=== PATIENT | female | born 1955 | race Hispanic/Latino ===

== ENCOUNTER 2022-01-18 08:44 | Emergency (ER) | payer SELFPAY ==
[2022-01-18] MEDS ORDERED: ONDANSETRON 4 MG/2 ML INJ IV ONE (10:07)
[2022-01-18] MEDS ORDERED: cloNIDine 0.2 MG TAB PO ONE (10:07)
[2022-01-18 10:10] LABS: Basophils % (Auto) 0.7 % (0.0-1.8); Eosinophils # (Auto) 0.2 K/mm3 (0.0-0.4); Eosinophils % (Auto) 3.9 % (0.0-4.3); Hematocrit 37.1 % (30.3-42.9); Hemoglobin 12.2 gm/dl (10.1-14.3); Lymphocytes # (Auto) 0.7 K/mm3 (1.2-5.4); Lymphocytes % (Auto) 15.8 % (13.4-35.0); Mean Corpuscular HGB Conc 33 % (30-34); Mean Corpuscular Volume 83 fl (79-97); Monocytes # (Auto) 0.2 K/mm3 (0.0-0.8); Monocytes % (Auto) 5.3 % (0.0-7.3); Platelet Count 250 K/mm3 (140-440); Red Blood Count 4.46 M/mm3 (3.65-5.03); Red Cell Distribution Width 14.7 % (13.2-15.2)
[2022-01-18] MEDS ORDERED: fentaNYL 100 MCG/2 ML INJ IV ONE ×2 (10:13→12:05)
[2022-01-18] MEDS ORDERED: SUMAtriptan SUCCINATE 6 MG/0.5 ML INJ SUB-Q ONE ×2 (10:13→14:11)
--- NOTE | 2022-01-18 10:18 | Emergency Department Report ---
HPI - General Chief Complaint: Headache Time Seen by Provider: 01/18/22 10:02 - [facility] HPI: Room 3 The patient is a 66-year-old female present with a chief complaint of migraine headache. Patient has a history of migraines and states this morning at 02: 00 she developed diffuse headache consistent with her migraines. Patient states she developed nausea vomiting with this pain. Patient states Imitrex normally helps but she has been out. Patient currently gives her pain a score of 10/10 ED Past Medical Hx - Past Medical History Previous Medical History?: Yes Hx Hypertension: Yes Hx Headaches / Migraines: Yes Additional medical history: Hyperthyroid - Surgical History Past Surgical History?: Yes Hx Cholecystectomy: Yes Hx Appendectomy: Yes - Family History Family history: no significant - Social History Smoking Status: Never Smoker Substance Use Type: None - Medications Home Medications: Home Medications Medication Instructions Recorded Confirmed Last Taken Type Ondansetron [Zofran ODT TAB] 8 mg PO Q8HR #20 tab.rapdis 01/18/22 Unknown Rx SUMAtriptan SUCCINATE [Imitrex] 100 mg PO ONCE PRN #10 01/18/22 Unknown Rx ED Review of Systems ROS: Stated complaint: HEADACHE/VOMITING Other details as noted in HPI Constitutional: no symptoms reported Eyes: denies: eye pain ENT: denies: throat pain Respiratory: no symptoms reported Cardiovascular: denies: chest pain Endocrine: no symptoms reported Gastrointestinal: nausea, vomiting Genitourinary: denies: dysuria Musculoskeletal: denies: back pain Neurological: headache Physical Exam - Physical Exam Vital Signs: Vital Signs 01/18/22 01/18/22 01/18/22 09:10 09:11 09:58 Temperature 98 F 98.0 F Pulse Rate 80 77 62 Respiratory 20 18 15 Rate Blood Pressure 194/117 Blood Pressure 194/117 [Right] O2 Sat by Pulse 98 98 98 Oximetry 01/18/22 10:00 Temperature Pulse Rate 65 Respiratory 18 Rate Blood Pressure 183/93 Blood Pressure [Right] O2 Sat by Pulse 98 Oximetry Physical Exam: GENERAL: The patient is well-developed well-nourished female lying on stretcher not appearing to be in acute distress. [] HEENT: Normocephalic. Atraumatic. Extraocular motions are intact. Patient has moist mucous membranes. NECK: Supple. No meningitic signs are noted. Trachea midline CHEST/LUNGS: Clear to auscultation. There is no respiratory distress noted. HEART/CARDIOVASCULAR: Regular. There is no tachycardia. There is no gallop rub or murmur. ABDOMEN: Abdomen is soft, nontender. Patient has normal bowel sounds. There is no abdominal distention. SKIN: There is no rash. There is no edema. There is no diaphoresis. NEURO: The patient is awake, alert, and oriented. The patient is cooperative. The patient has no focal neurologic deficits. The patient has normal speech. Cranial nerves II through XII grossly intact. GCS 15. NIHSS = 0 MUSCULOSKELETAL: There is no evidence of acute injury. ED Course Vital Signs 01/18/22 01/18/22 01/18/22 09:10 09:11 09:58 Temperature 98 F 98.0 F Pulse Rate 80 77 62 Respiratory 20 18 15 Rate Blood Pressure 194/117 Blood Pressure 194/117 [Right] O2 Sat by Pulse 98 98 98 Oximetry 01/18/22 10:00 Temperature Pulse Rate 65 Respiratory 18 Rate Blood Pressure 183/93 Blood Pressure [Right] O2 Sat by Pulse 98 Oximetry - Reevaluation(s) Reevaluation #1: 01/18/22 12:06 Patient states her head pain is decreased to a 7/10 01/18/22 14:12 Patient states the headache is decreased to 5/10. Patient requesting second dose of Imitrex and to be discharged home with a prescription ED Medical Decision Making - Lab Data Result diagrams: 01/18/22 09:41 01/18/22 09:41 - Radiology Data Radiology results: report reviewed (CT head), image reviewed (CT head) [address] [address] Cat Scan Report Signed Patient: BRYSON SANCHEZ MR#: [id number] : 1955 Acct:[id number] Age/Sex: 66 / F ADM Date: 01/18/22 Loc: ED Attending Dr: Ordering Physician: JOE PEREZ MD Date of Service: 01/18/22 Procedure(s): CT head/brain wo con Accession Number(s): [id number] cc: JOE PEREZ MD CT HEAD WITHOUT CONTRAST INDICATION / CLINICAL INFORMATION: neuro deficits <6hrs or sx present upon awakening. TECHNIQUE: All CT scans at this location are performed using CT dose reduction for ALARA by means of automated exposure control. COMPARISON: None available. FINDINGS: HEMORRHAGE: No evidence of intracranial hemorrhage or extra-axial fluid collection. EXTRA-AXIAL SPACES: Cortical sulci, sylvian fissures and basilar cisterns have an unremarkable appearance. VENTRICULAR SYSTEM: The third and lateral ventricles are of normal size and configuration. CEREBRAL PARENCHYMA: No areas of abnormal brain parenchymal attenuation are identified. There is no indication of recent infarction. MIDLINE SHIFT OR HERNIATION: There is no mass effect. CEREBELLUM / BRAINSTEM: Brainstem and cerebellum have an unremarkable appearance. MIDLINE STRUCTURES:No abnormalities of the pituitary gland or pineal region are identified. INTRACRANIAL VESSELS:No abnormalities are identified on this noncontrast head CT. ORBITS: visualized portions of the orbits have an unremarkable appearance. SOFT TISSUES of HEAD: No significant abnormality. CALVARIUM: Evaluation of bone windows reveals no abnormalities. PARANASAL SINUSES / MASTOID AIR CELLS: Visualized portions of the paranasal sinuses are free from inflammatory mucosal disease. Mastoid air cells are normally pneumatized. IMPRESSION: 1. No significant intracranial abnormality. Signer Name: Jose Juan De Leon MD Signed: 01/18/2022 11:18 AM Workstation Name: [id number] Transcribed By: Dictated By: Jose Juan De Leon MD Electronically Authenticated By: Jose Juan De Leon MD Signed Date/Time: 01/18/22 1118 DD/ 1110 TD/TT: - Differential Diagnosis Migraine headache, hypertensive urgency, hypertensive emergency Critical care attestation.: If time is entered above; I have spent that time in minutes in the direct care of this critically ill patient, excluding procedure time. ED Disposition Clinical Impression: Migraine headache Disposition: 01 HOME / SELF CARE / HOMELESS Is pt being admited?: No Does the pt Need Aspirin: No Condition: Stable Instructions: Migraine Headache, [id number] Additional Instructions: Return to the emergency department should you develop worsening symptoms, i nability to tolerate food or liquids, high fever or any other concerns Prescriptions: SUMAtriptan SUCCINATE [Imitrex] 100 mg PO ONCE PRN #10 PRN Reason: Migraine Headache Ondansetron [Zofran ODT TAB] 8 mg PO Q8HR #20 tab.rapdis Referrals: ARLETTE BERNARD MD [Staff Physician] - 3-5 Days (Dr. Bernard is a neurologist. Please follow-up with him for further evaluation if you do not already have your own neurologist) Time of Disposition: 14:15
[2022-01-18 10:22] LABS: INR 0.91 (0.87-1.13)
[2022-01-18 10:23] LABS: Partial Thromboplastin Time 27.2 Sec. (24.2-36.6)
[2022-01-18 10:32] LABS: Blood Urea Nitrogen 10 mg/dL (7-17); Calcium 9.6 mg/dL (8.4-10.2); Hemolysis Index 14
[2022-01-18 10:34] LABS: BUN/Creatinine Ratio 17
--- NOTE | 2022-01-18 11:22 | Cat Scan Report ---
CT HEAD WITHOUT CONTRAST INDICATION / CLINICAL INFORMATION: neuro deficits <6hrs or sx present upon awakening. TECHNIQUE: All CT scans at this location are performed using CT dose reduction for ALARA by means of automated e xposure control. COMPARISON: None available. FINDINGS: HEMORRHAGE: No evidence of intracranial hemorrhage or extra-axial fluid collection. EXTRA-AXIAL SPACES: Cortical sulci, sylvian fissures and basilar cisterns have an unremarkable appear ance. VENTRICULAR SYSTEM: The third and lateral ventricles are of normal size and configuration. CEREBRAL PARENCHYMA: No areas of abnormal brain parenchymal attenuation are identified. There is no i ndication of recent infarction. MIDLINE SHIFT OR HERNIATION: There is no mass effect. CEREBELLUM / BRAINSTEM: Brainstem and cerebellum have an unremarkable appearance. MIDLINE STRUCTURES:No abnormalities of the pituitary gland or pineal region are identified. INTRACRANIAL VESSELS:No abnormalities are identified on this noncontrast head CT. ORBITS: visualized portions of the orbits have an unremarkable appearance. SOFT TISSUES of HEAD: No significant abnormality. CALVARIUM: Evaluation of bone windows reveals no abnormalities. PARANASAL SINUSES / MASTOID AIR CELLS: Visualized portions of the paranasal sinuses are free from inf lammatory mucosal disease. Mastoid air cells are normally pneumatized. IMPRESSION: 1. No significant intracranial abnormality. Signer Name: Jose Juan De Leon MD Signed: 01/18/2022 11:18 AM Workstation Name: [id number]
[2022-01-18 11:42] LABS: Thrombin Time 17.3 Sec. (15.1-19.6)
[2022-01-18] MEDS ORDERED: METOCLOPRAMIDE 10 MG/2 ML INJ IV ONE (12:05)
[2022-01-18] MEDS ORDERED: diphenhydrAMINE 25 MG CAP PO ONE (12:06)
--- NOTE | 2022-01-18 13:27 | Electrocardiograph Report ---
[facility] Test Date: 2022-01-18 Test Time: 09:44:26 Pat Name: BRYSON SANCHEZ Department: Room: Gender: F Vegetable Preparer: CECILLE : 1955 Requested By: JOE PEREZ Order Number: [id number] Reading MD: Scott Holland Measurements Intervals [place] Rate: 65 P: 75 MN: 147 QRS: 85 QRSD: 94 T: 70 QT: 470 QTc: 489 Interpretive Statements Sinus rhythm Consider left ventricular hypertrophy No previous ECG available for comparison Electronically Signed On 01-18-2022 13:27:29 EDT by Scott Holland
[2022-01-18 16:26] VITALS: BP 175/82
== END 2022-01-18 16:05 | disposition home or self-care (01) ==
LOC: ED 08:44
DX: G43.909 Migraine, unspecified, not intractable, without status migrainosus (principal); I10 Essential (primary) hypertension; E05.90 Thyrotoxicosis, unspecified without thyrotoxic crisis or storm; Z90.89 Acquired absence of other organs; Z98.890 Other specified postprocedural states
CPT/HCPCS: 36415; 70450; 80048; 84484; 85025; 85610; 85670; 85730; 93005; 96372; 96374; 96375; 96376; 99284; J2405; J2765; J3010; J3490; J3030